=== PATIENT | female | born 1960 | race Caucasian/White ===

== ENCOUNTER 2016-12-23 03:32 | Emergency (ER) | payer MEDICARE, MEDICAID ==
[~2016-12-23] VITALS: Ht 165.1 cm; Wt 76.2 kg
--- NOTE | 2016-12-23 03:44 | NUR ---
PT BIB SELF FROM HOME, PT AMBULATORY TO ER BED 4 PT C/O HEADACHE AND BP HIGH X 6 HOURS. PT AOX3 RR EVEN AND UNLABORED. NO SOB NOTED. NAD NOTED. NO NVD AT THIS TIME. PT GOWNED AND PLACED ON MONITOR WAITING FOR MD WRAY.
--- NOTE | 2016-12-23 03:45 | NUR ---
URINE COLLECTED. CALLED LAB FOR RECONCILIATION SPECIALIST.
--- NOTE | 2016-12-23 03:54 | NUR ---
DR. HURLEY AT BEDSIDE FOR EVAL.
[2016-12-23] MEDS ORDERED: ACETAMINOPHEN ES 500 MG TABLET ONE (03:58)
[2016-12-23] MEDS ORDERED: ACETAMINOPHEN 325 MG TABLET PO ONE (04:00)
--- NOTE | 2016-12-23 05:15 | NUR ---
Patient discharged to home in stable condition. Written and verbal after care instructions given. Patient verbalizes understanding of instruction. ambulatory with a steady gait
[2016-12-23 05:16] VITALS: BP 170/69
== END 2016-12-23 05:17 | disposition home or self-care (01) ==
LOC: ER 03:32
DX: I25.10 Atherosclerotic heart disease of native coronary artery without angina pectoris (principal); R51 Headache; F41.9 Anxiety disorder, unspecified; Z95.1 Presence of aortocoronary bypass graft
CPT/HCPCS: A4606; Z7610